=== PATIENT | male | born 1960 | race Caucasian/White ===

== ENCOUNTER 2017-09-11 12:29 | Emergency (ER) | payer OTHER ==
[~2017-09-11] VITALS: Ht 170.2 cm; Wt 87.5 kg
[~2017-09-11 12:29] MED LIST: ATENOLOL50 MG PO; ATORVASTATIN CA10 MG; ATORVASTATIN CA10 MG PO; CATAFLAM50 MG PO; CELEBREX100 MG PO; DIAZEPAM10 MG PO; KETO10TA2 PO; LISINOPRIL10 MG; LISINOPRIL10 MG PO; ORPH100T PO; TAMS0.4C PO; TENORMIN50 MG
[2017-09-11] MEDS ORDERED: TOPROL XL50 M1 (12:45)
== END 2017-09-11 19:37 | disposition home or self-care (01) ==
LOC: ER 12:29
DX: K57.32 Diverticulitis of large intestine without perforation or abscess without bleeding (principal); R10.2 Pelvic and perineal pain

== ENCOUNTER 2017-09-20 22:56 | Inpatient (IN) | payer OTHER ==
[~2017-09-20] VITALS: Ht 170.2 cm; Wt 85.7 kg
[~2017-09-20 22:56] MED LIST changes: +TOPROL XL50 M1
[2017-09-27] MEDS ORDERED: PROTONIX40 MG PO (09:22)
[2017-09-27] MEDS ORDERED: GAS-X125 M1 PO (09:22)
[2017-09-27] MEDS ORDERED: LEVSIN/SL0.125 MG PO (09:22)
[2017-09-27] MEDS ORDERED: INTESTINEX680 M1 PO (09:23)
== END 2017-09-27 14:20 | disposition home health service (06) | DRG 392 ==
LOC: SURH 22:56
PROC: 3E0436Z Introduction of Nutritional Substance into Central Vein, Percutaneous Approach (ICD-10-PCS; principal; 2017-09-21)
PROC: 02HV33Z Insertion of Infusion Device into Superior Vena Cava, Percutaneous Approach (ICD-10-PCS; 2017-09-21)
PROC: BW21Y0Z Computerized Tomography (CT Scan) of Abdomen and Pelvis using Other Contrast, Unenhanced and Enhanced (ICD-10-PCS; 2017-09-23)
DX: K57.20 Diverticulitis of large intestine with perforation and abscess without bleeding (principal); E66.8 Other obesity; I34.1 Nonrheumatic mitral (valve) prolapse; I11.9 Hypertensive heart disease without heart failure; E78.4 Other hyperlipidemia; Z85.810 Personal history of malignant neoplasm of tongue; E16.1 Other hypoglycemia; F41.8 Other specified anxiety disorders; L24.89 Irritant contact dermatitis due to other agents
CPT/HCPCS: 240

== ENCOUNTER 2017-11-27 11:16 | Inpatient (IN) | payer OTHER ==
[~2017-11-27] VITALS: Ht 170.2 cm; Wt 86.2 kg
[~2017-11-27 11:16] MED LIST changes: +GAS-X125 M1 PO; +INTESTINEX680 M1 PO; +LEVSIN/SL0.125 MG PO; +PROTONIX40 MG PO
[2017-11-29] MEDS ORDERED: WELLBUTRIN XL300 MG PO (14:43)
[2017-11-29] MEDS ORDERED: AMBIEN10 MG PO (14:44)
[2017-11-29] MEDS ORDERED: ZANTAC150 M3 PO (14:44)
[2017-12-13] MEDS ORDERED: PROTONIX40 MG PO (16:17)
[2017-12-13] MEDS ORDERED: LEVSIN/SL0.125 MG PO (16:18)
[2017-12-13] MEDS ORDERED: INTESTINEX680 M1 PO (16:18)
[2017-12-13] MEDS ORDERED: AMBIEN5 MG PO (16:19)
== END 2017-12-13 17:45 | disposition home or self-care (01) | DRG 331 ==
LOC: O/R 12-07 06:28 → MEDI 12-07 06:28 → SURH 12-07 07:00 → MEDI 12-07 17:27
PROVIDERS: Surgery
PROC: 0DJD8ZZ Inspection of Lower Intestinal Tract, Via Natural or Artificial Opening Endoscopic (ICD-10-PCS; 2017-12-07)
PROC: 4A1BXSH Monitoring of Gastrointestinal Vascular Perfusion using Indocyanine Green Dye, External Approach (ICD-10-PCS; 2017-12-07)
PROC: 4A12X4Z Monitoring of Cardiac Electrical Activity, External Approach (ICD-10-PCS; 2017-12-07)
PROC: 4A033R1 Measurement of Arterial Saturation, Peripheral, Percutaneous Approach (ICD-10-PCS; 2017-12-07)
PROC: 0DTN4ZZ Resection of Sigmoid Colon, Percutaneous Endoscopic Approach (ICD-10-PCS; principal; 2017-12-07 07:00)
DX: K57.32 Diverticulitis of large intestine without perforation or abscess without bleeding (principal); E11.9 Type 2 diabetes mellitus without complications; E78.4 Other hyperlipidemia; E66.09 Other obesity due to excess calories; I34.1 Nonrheumatic mitral (valve) prolapse; F41.8 Other specified anxiety disorders

== ENCOUNTER → 2017-12-06 | Day surgery (SDC) | payer OTHER ==
[~2017-12-06] MED LIST changes: +AMBIEN10 MG PO; +AMBIEN5 MG PO; +WELLBUTRIN XL300 MG PO; +ZANTAC150 M3 PO
== END | disposition home or self-care (01) ==
LOC: ADM 11-29 12:45 → AMB-ENDOS 12:45
DX: K57.32 Diverticulitis of large intestine without perforation or abscess without bleeding (principal)

== ENCOUNTER 2018-01-02 12:27 | Outpatient (CLI) | payer OTHER | END 2018-01-02 12:38 | disposition home or self-care (01) | LOC: TOM 12:27 | DX: K64.8 Other hemorrhoids (principal); K57.32 Diverticulitis of large intestine without perforation or abscess without bleeding ==

== ENCOUNTER 2018-01-02 13:16 | Outpatient (CLI) | payer OTHER | END 2018-01-02 13:28 | disposition home or self-care (01) | LOC: LAB 13:16 | DX: K64.8 Other hemorrhoids (principal) ==

== ENCOUNTER 2020-02-22 07:31 | Outpatient (CLI) | payer OTHER | END 2020-02-22 07:34 | disposition home or self-care (01) | LOC: NUCLEAR 07:31 | DX: I11.9 Hypertensive heart disease without heart failure (principal); I25.118 Atherosclerotic heart disease of native coronary artery with other forms of angina pectoris; E78.2 Mixed hyperlipidemia | CPT/HCPCS: A9500; 78452; 93017 ==

== ENCOUNTER 2020-03-20 07:52 | Day surgery (SDC) | payer OTHER | END 2020-03-20 13:00 | disposition home or self-care (01) | LOC: AMB-ENDOS 07:52 | PROVIDERS: ATTEND Surgery | DX: D12.2 Benign neoplasm of ascending colon (principal); Z20.828 Contact with and (suspected) exposure to other viral communicable diseases ==